=== PATIENT | female | born 1985 | race Caucasian/White ===

== ENCOUNTER 2022-11-11 15:23 | Emergency (ER) | payer SELFPAY ==
[~2022-11-11] VITALS: Ht 160 cm; Wt 72.1 kg
[2022-11-11 15:30] VITALS: BP 133/75
[2022-11-11] MEDS ORDERED: AMOX-999 PO (15:50)
--- NOTE | 2022-11-11 16:13 | NUR ---
Patient discharged with v/s stable. Written and verbal after care instructions given and explained. Patient alert, oriented and verbalized understanding of instructions. Ambulatory with steady gait. All questions addressed prior to discharge. ID band removed. Patient advised to follow up with PMD. Rx of amoxicillin/potassium clav given. Patient educated on indication of medication including possible reaction and side effects. Opportunity to ask questions provided and answered.
== END 2022-11-11 16:13 | disposition home or self-care (01) ==
LOC: MED 15:23
DX: S61.031A Puncture wound without foreign body of right thumb without damage to nail, initial encounter (principal); Z79.899 Other long term (current) drug therapy; W55.01XA Bitten by cat, initial encounter; Y93.89 Activity, other specified; Y92.89 Other specified places as the place of occurrence of the external cause; Y99.8 Other external cause status
CPT/HCPCS: 90471; 90715; 99283